=== PATIENT | female | born 1945 | race Caucasian/White ===

== ENCOUNTER 2017-10-20 15:08 | Inpatient (IN) | payer OTHER ==
[~2017-10-20] VITALS: Ht 157.5 cm; Wt 117.7 kg
[~2017-10-20 15:08] MED LIST: ADVAIR 100-501 EACH IH; AMBIEN5 MG PO; FENTANYL1 EACH TD; FLEXERIL10 MG PO; LASIX40 MG PO; METRONIDAZOLE500 MG PO; PERCOCET 10-321 EACH PO; PERCOCET 5-3251 EACH PO; XANAX0.5 MG PO
[2017-10-20 16:00] LABS: HEMATOCRIT 37.4 % (36.0-46.0); MCH 28.8 PG (29.0-34.0); MCHC 30.2 G/DL (30.0-36.0); MCV 95.4 FL (83-99); MEAN PLAT.VOLUME 10.2 uM^3 (9.5-12.4); PLATELET COUNT 291 K/uL (156-360); RBC DIS.WIDTH-CV 14.8 % (11.8-14.6); RBC DIS.WIDTH-SD 51.8 % (39-53); RED BLOOD COUNT 3.92 M/uL (3.80-5.20); WHITE BLOOD COUNT 10.2 K/uL (4.1-10.2)
[2017-10-20 16:10] LABS: CHLORIDE 103 mEq/L (99-109); POTASSIUM 3.7 mEq/L (3.7-5.4); SODIUM 143 mEq/L (136-147)
[2017-10-20 16:12] LABS: GLUCOSE 119 mg/dL (70-99)
[2017-10-20 16:13] LABS: ANION GAP 13 MEQ/L (2-14)
[2017-10-20 16:16] LABS: GFR ESTIMATE (CALCULATED) 39 mL/min/
[2017-10-20 16:17] LABS: UREA NITROGEN (BUN) 21 mg/dL (9-23)
[2017-10-20 18:04] VITALS: BP 132/62
[2017-10-20 18:10] LABS: TROP-I INTERPRETATION NEGATIVE; TROPONIN-I < 0.01 ng/mL (0.0-0.30)
[2017-10-20 19:31] VITALS: BP 107/54
[2017-10-20 23:58] VITALS: BP 136/67
[2017-10-21 04:07] VITALS: BP 159/72
[2017-10-21 06:30] LABS: HEMATOCRIT 37.3 % (36.0-46.0); MCH 28.1 PG (29.0-34.0); MCHC 29.5 G/DL (30.0-36.0); MCV 95.4 FL (83-99); MEAN PLAT.VOLUME 10.2 uM^3 (9.5-12.4); PLATELET COUNT 320 K/uL (156-360); RBC DIS.WIDTH-CV 14.7 % (11.8-14.6); RBC DIS.WIDTH-SD 52.1 % (39-53); RED BLOOD COUNT 3.91 M/uL (3.80-5.20); WHITE BLOOD COUNT 9.3 K/uL (4.1-10.2)
[2017-10-21 06:55] LABS: ALKALINE PHOSPHATASE 130 IU/L (3-129); ANION GAP 7 MEQ/L (2-14); CHLORIDE 101 MEQ/L (99-109); GFR ESTIMATE (CALCULATED) 36 mL/min/; GLUCOSE 173 mg/dL (70-99); POTASSIUM 4.1 MEQ/L (3.7-5.4); SAMPLE HEMOLYSIS CHECK 0; SAMPLE ICTERIC CHECK 0; SAMPLE LIPEMIA CHECK 0; SODIUM 143 MEQ/L (136-147); TOTAL BILIRUBIN 0.3 MG/DL (0.0-1.0); UREA NITROGEN (BUN) 26 mg/dL (9-23)
[2017-10-21 08:00] VITALS: BP 129/69
[2017-10-21] MEDS ORDERED: TYLENOL EXTRA500 MG PO (09:50)
[2017-10-21] MEDS ORDERED: ZOLOFT100 MG PO (09:51)
[2017-10-21] MEDS ORDERED: ROXICODONE5 MG PO (09:52)
[2017-10-21] MEDS ORDERED: PROVENTIL,2.5 MG/3 M IH (09:53)
[2017-10-21] MEDS ORDERED: VENTOLIN HFA18 GM IH (09:53)
[2017-10-21] MEDS ORDERED: CLARITIN,ALAVAR10 MG PO (09:54)
[2017-10-21] MEDS ORDERED: ADVAIR 250/501 DISK IH (09:54)
[2017-10-21] MEDS ORDERED: LEVOTHYROXINE75 MCG PO (09:54)
[2017-10-21 12:00] VITALS: BP 146/71
[2017-10-21 14:44] LABS: ADD MIUA? YES; BILIRUBIN NEGATIVE; BLOOD NEGATIVE; COLOR YELLOW ((YELLOW)); GLUCOSE (STRIP) NEGATIVE; KETONES NEGATIVE; LEUKOCYTES TRACE; NITRITE NEGATIVE; PROTEIN (STRIP) 30; SPECIFIC GRAVITY 1.018 (1.000-1.030); UROBILINOGEN 0.2 MG/DL (0.2-1.0)
[2017-10-21 15:02] LABS: BACTERIA RARE /HPF; EPITHELIAL CELLS 1+ /HPF; GRANULAR CASTS 0-5 /LPF; MUCUS TRACE /LPF; RED BLOOD CELLS 0-5 /HPF (0-5); UCUL ADDED? NO; WHITE BLOOD CELLS 0-5 /HPF (0-5)
[2017-10-21 15:45] VITALS: BP 139/64
[2017-10-21 20:00] VITALS: BP 131/67
[2017-10-21 23:26] VITALS: BP 150/72
[2017-10-22 03:25] VITALS: BP 147/72
[2017-10-22 06:52] LABS: MCH 28.2 PG (29.0-34.0); MCHC 29.7 G/DL (30.0-36.0); MEAN PLAT.VOLUME 10.1 uM^3 (9.5-12.4); PLATELET COUNT 335 K/uL (156-360); RBC DIS.WIDTH-CV 14.6 % (11.8-14.6); RBC DIS.WIDTH-SD 51.1 % (39-53); RED BLOOD COUNT 3.79 M/uL (3.80-5.20); WHITE BLOOD COUNT 10.3 K/uL (4.1-10.2)
[2017-10-22 07:19] LABS: ANION GAP 9 MEQ/L (2-14); CHLORIDE 101 MEQ/L (99-109); GFR ESTIMATE (CALCULATED) 39 mL/min/; GLUCOSE 156 mg/dL (70-99); SAMPLE HEMOLYSIS CHECK 0; SAMPLE ICTERIC CHECK 0; SAMPLE LIPEMIA CHECK 0; SODIUM 141 MEQ/L (136-147); UREA NITROGEN (BUN) 39 mg/dL (9-23)
[2017-10-22 08:14] VITALS: BP 152/64
[2017-10-22 12:34] VITALS: BP 149/65
[2017-10-22 15:30] VITALS: BP 145/69
[2017-10-23 01:18] VITALS: BP 121/63
[2017-10-23 07:08] VITALS: BP 113/59
[2017-10-23] MEDS ORDERED: SPIRIVA RESPIMAT4 GM IH (10:05)
[2017-10-23] MEDS ORDERED: CEFDINIR300 MG PO (10:05)
[2017-10-23] MEDS ORDERED: MUCINEX600 MG PO (10:05)
[2017-10-23] MEDS ORDERED: PREDNISONE20 MG PO (10:05)
== END 2017-10-23 14:45 | disposition home health service (06) | DRG 189 ==
LOC: EME 15:08 → EDOF 16:38 → 5SOUTH 16:38 → ENRESERV 16:40 → 5SOUTH 17:53 → ENPENDDIS 10-23 → 5SOUTH 10-23 14:45
PROVIDERS: Emergency Medicine; Hospitalist; Internal Medicine
DX: J96.21 Acute and chronic respiratory failure with hypoxia (principal); J18.9 Pneumonia, unspecified organism; J44.0 Chronic obstructive pulmonary disease with (acute) lower respiratory infection; J44.1 Chronic obstructive pulmonary disease with (acute) exacerbation; Z68.42 Body mass index [BMI] 45.0-49.9, adult; E03.9 Hypothyroidism, unspecified; G89.29 Other chronic pain; I25.10 Atherosclerotic heart disease of native coronary artery without angina pectoris; N18.3 Chronic kidney disease, stage 3 (moderate); I25.5 Ischemic cardiomyopathy; E66.01 Morbid (severe) obesity due to excess calories; M54.9 Dorsalgia, unspecified; F32.9 Major depressive disorder, single episode, unspecified; I50.9 Heart failure, unspecified; Z99.81 Dependence on supplemental oxygen; Z90.710 Acquired absence of both cervix and uterus; Z90.49 Acquired absence of other specified parts of digestive tract; Z87.891 Personal history of nicotine dependence; Z96.649 Presence of unspecified artificial hip joint; Z82.5 Family history of asthma and other chronic lower respiratory diseases
CPT/HCPCS: 71020; 80048; 80053; 81003; 83605; 83880; 84484; 85027; 87040; 87449; 87502; 93005; 94640; 94640 76; 94760; 94799; 99202; 99281; 99285; J0456; J0696; J1650; J1940; J2930; J7050; J7512

== ENCOUNTER 2018-03-14 10:54 | Observation (INO) | payer OTHER ==
[~2018-03-14] VITALS: Ht 157.5 cm; Wt 109.0 kg
[~2018-03-14 10:54] MED LIST changes: +ADVAIR 250/501 DISK IH; +CEFDINIR300 MG PO; +CLARITIN,ALAVAR10 MG PO; +LEVOTHYROXINE75 MCG PO; +MUCINEX600 MG PO; +PREDNISONE20 MG PO; +PROVENTIL,2.5 MG/3 M IH; +ROXICODONE5 MG PO; +SPIRIVA RESPIMAT4 GM IH; +TYLENOL EXTRA500 MG PO; +VENTOLIN HFA18 GM IH; +ZOLOFT100 MG PO
[2018-03-14 13:09] LABS: HEMATOCRIT 37.5 % (36.0-46.0); HEMOGLOBIN 11.9 G/DL (11.9-15.5); MCH 30.4 PG (29.0-34.0); MCHC 31.7 G/DL (30.0-36.0); MCV 95.7 FL (83-99); PLATELET COUNT 181 K/uL (156-360); RBC DIS.WIDTH-CV 14.4 % (11.8-14.6); RBC DIS.WIDTH-SD 50.4 % (39-53); RED BLOOD COUNT 3.92 M/uL (3.80-5.20); WHITE BLOOD COUNT 5.6 K/uL (4.1-10.2)
[2018-03-14 13:20] LABS: ALBUMIN 4.1 g/dL (3.2-4.8); CHLORIDE 107 mEq/L (99-109); POTASSIUM 4.9 mEq/L (3.7-5.4); SODIUM 144 mEq/L (136-147)
[2018-03-14 13:23] LABS: GLUCOSE 101 mg/dL (70-99); TOTAL PROTEIN 7.1 g/dL (6.4-8.3)
[2018-03-14 13:25] LABS: TOTAL BILIRUBIN 0.4 mg/dL (0.0-1.0)
[2018-03-14 13:26] LABS: ALKALINE PHOSPHATASE 93 IU/L (3-129); CREATININE 1.3 mg/dL (0.6-1.3); GFR ESTIMATE (CALCULATED) 42 mL/min/
[2018-03-14 13:27] LABS: UREA NITROGEN (BUN) 21 mg/dL (9-23)
[2018-03-14 13:28] LABS: AST (GOT) 17 IU/L (2-34)
[2018-03-14 13:29] LABS: ALT (GPT) 12 IU/L (3-49)
[2018-03-14 13:35] LABS: TROP-I INTERPRETATION NEGATIVE; TROPONIN-I < 0.01 ng/mL (0.0-0.30)
[2018-03-14] MEDS ORDERED: SPIRIVA RESPIMAT4 GM IH (16:13)
[2018-03-14 16:23] VITALS: BP 141/77
[2018-03-14 20:00] VITALS: BP 137/71
[2018-03-14 23:07] VITALS: BP 166/77
[2018-03-15 03:40] VITALS: BP 142/80
[2018-03-15 05:32] LABS: HEMATOCRIT 37.1 % (36.0-46.0); HEMOGLOBIN 11.3 G/DL (11.9-15.5); MCH 29.1 PG (29.0-34.0); MCHC 30.5 G/DL (30.0-36.0); MCV 95.6 FL (83-99); PLATELET COUNT 179 K/uL (156-360); RBC DIS.WIDTH-CV 14.6 % (11.8-14.6); RBC DIS.WIDTH-SD 50.6 % (39-53); RED BLOOD COUNT 3.88 M/uL (3.80-5.20); WHITE BLOOD COUNT 4.1 K/uL (4.1-10.2)
[2018-03-15 05:58] LABS: CHLORIDE 104 MEQ/L (99-109); CREATININE 1.4 MG/DL (0.6-1.3); GFR ESTIMATE (CALCULATED) 39 mL/min/; POTASSIUM 4.4 MEQ/L (3.7-5.4); SODIUM 141 MEQ/L (136-147); UREA NITROGEN (BUN) 23 mg/dL (9-23)
[2018-03-15 06:01] LABS: GLUCOSE 204 mg/dL (70-99)
[2018-03-15 07:43] VITALS: BP 171/61
[2018-03-15 11:52] VITALS: BP 138/68
[2018-03-15] MEDS ORDERED: BENZONATATE100 MG PO (14:10)
[2018-03-15] MEDS ORDERED: AZITHROMYCIN500 M1 PO (14:10)
[2018-03-15] MEDS ORDERED: PREDNISONE20 MG PO (14:13)
== END 2018-03-15 15:50 | disposition home or self-care (01) ==
LOC: EME 10:54 → EDOF 14:36 → 4SOUTH 14:36 → ENRESERV 14:45 → 4SOUTH 16:07 → ENPENDDIS 03-15 14:53 → 4SOUTH 03-15 15:50
PROVIDERS: Physician Assistant
DX: J44.1 Chronic obstructive pulmonary disease with (acute) exacerbation (principal); J44.0 Chronic obstructive pulmonary disease with (acute) lower respiratory infection; J20.9 Acute bronchitis, unspecified; R09.02 Hypoxemia; F32.9 Major depressive disorder, single episode, unspecified; G89.29 Other chronic pain; M54.9 Dorsalgia, unspecified; Z99.81 Dependence on supplemental oxygen; E66.01 Morbid (severe) obesity due to excess calories; Z68.41 Body mass index [BMI] 40.0-44.9, adult; E03.9 Hypothyroidism, unspecified; Z87.891 Personal history of nicotine dependence; Z96.641 Presence of right artificial hip joint; Z90.710 Acquired absence of both cervix and uterus; Z82.5 Family history of asthma and other chronic lower respiratory diseases; Z88.8 Allergy status to other drugs, medicaments and biological substances
CPT/HCPCS: 71046; 80048; 80053; 84484; 85027; 87040; 93005; 94640; 94640 76; 94644; 94799; 99202; 99281; 99285; G0378; J1644; J2920; J2930

== ENCOUNTER 2018-05-08 08:34 | Inpatient (IN) | payer OTHER ==
[~2018-05-08] VITALS: Ht 157.5 cm; Wt 115.0 kg
[~2018-05-08 08:34] MED LIST changes: +AZITHROMYCIN500 M1 PO; +BENZONATATE100 MG PO
[2018-05-08 09:18] LABS: BASOPHIL (%) 0.7 % (0-1); EOSINOPHIL (%) 12.3 % (0-5); EOSINOPHIL COUNT 0.7 K/uL (0-0.3); HEMATOCRIT 35.3 % (36.0-46.0); HEMOGLOBIN 11.2 G/DL (11.9-15.5); IMMATURE GRANULOCYTE (%) 0.2 % (0.0-0.7); LYMPHOCYTE (%) 23.3 % (15-42); LYMPHOCYTE COUNT 1.3 K/uL (1.0-2.8); MCH 29.9 PG (29.0-34.0); MCHC 31.7 G/DL (30.0-36.0); MCV 94.4 FL (83-99); MONOCYTE (%) 8.2 % (3-12); MONOCYTE COUNT 0.5 K/uL (0-0.8); NEUTROPHIL (%) 55.3 % (45-76); PLATELET COUNT 218 K/uL (156-360); RBC DIS.WIDTH-CV 14.6 % (11.8-14.6); RBC DIS.WIDTH-SD 50.8 % (39-53); RED BLOOD COUNT 3.74 M/uL (3.80-5.20); WHITE BLOOD COUNT 5.5 K/uL (4.1-10.2)
[2018-05-08 09:29] LABS: CHLORIDE 104 mEq/L (99-109); POTASSIUM 4.6 mEq/L (3.7-5.4); SODIUM 144 mEq/L (136-147)
[2018-05-08 09:31] LABS: GLUCOSE 119 mg/dL (70-99)
[2018-05-08 09:35] LABS: CREATININE 1.3 mg/dL (0.6-1.3); GFR ESTIMATE (CALCULATED) 42 mL/min/
[2018-05-08 09:36] LABS: UREA NITROGEN (BUN) 27 mg/dL (9-23)
[2018-05-08 09:39] LABS: TROP-I INTERPRETATION NEGATIVE; TROPONIN-I 0.01 ng/mL (0.0-0.30)
[2018-05-08] MEDS ORDERED: VITAMIN D31000 UNI2 PO (10:41)
[2018-05-08] MEDS ORDERED: ALLERGY EYE DRO10 ML BOTH EYES (10:42)
[2018-05-08 11:58] LABS: COMMENTS - BLOOD GASES C+A+; DEVICE NC; SITE RR
[2018-05-08 11:59] LABS: BASE EXCESS 6.4 mEq/L (-3 to +3); BICARBONATE 32.7 mEq/L (22-26); METHEMOGLOBIN 0.7 % (0-1.5); O2 FLOW 2 L/MIN; PCO2 54 mm Hg (35-45); PO2 86 mm Hg (80-100); pH 7.39 (7.35-7.45)
[2018-05-08 12:58] VITALS: BP 114/76; BP 158/76
[2018-05-08 15:31] VITALS: BP 135/69
[2018-05-08 20:16] VITALS: BP 145/68
[2018-05-09 00:09] VITALS: BP 146/74
[2018-05-09 04:21] VITALS: BP 160/68
[2018-05-09 05:26] LABS: HEMATOCRIT 34.6 % (36.0-46.0); HEMOGLOBIN 10.8 G/DL (11.9-15.5); MCH 29.2 PG (29.0-34.0); MCHC 31.2 G/DL (30.0-36.0); MCV 93.5 FL (83-99); PLATELET COUNT 220 K/uL (156-360); RBC DIS.WIDTH-CV 14.5 % (11.8-14.6); RBC DIS.WIDTH-SD 49.1 % (39-53); WHITE BLOOD COUNT 4.7 K/uL (4.1-10.2)
[2018-05-09 07:58] VITALS: BP 180/75
[2018-05-09 11:45] VITALS: BP 133/61
[2018-05-09 16:01] VITALS: BP 114/55
[2018-05-09 19:40] VITALS: BP 121/77
[2018-05-10 00:22] VITALS: BP 163/77
[2018-05-10 04:02] VITALS: BP 133/65
[2018-05-10 12:34] VITALS: BP 115/56
[2018-05-10 17:47] VITALS: BP 116/61
[2018-05-10 20:05] VITALS: BP 136/60
[2018-05-11 00:39] VITALS: BP 135/93
[2018-05-11 04:55] VITALS: BP 142/65
[2018-05-11 07:45] VITALS: BP 129/59
[2018-05-11] MEDS ORDERED: MUCINEX600 MG PO (13:01)
[2018-05-11] MEDS ORDERED: AMLODIPINE BESYL5 MG PO (13:02)
[2018-05-11] MEDS ORDERED: PREDNISONE5 MG PO (13:03)
[2018-05-11] MEDS ORDERED: LEVOFLOXACIN750 MG PO (13:05)
[2018-05-11] MEDS ORDERED: DULERA 200 MCG/13 GM IH (13:05)
[2018-05-11 13:38] VITALS: BP 150/72
== END 2018-05-11 14:57 | disposition home health service (06) | DRG 191 ==
LOC: EME 08:34 → EDOF 11:22 → ENRESERV 11:34 → 4SOUTH 12:47
PROVIDERS: Emergency Medicine; Internal Medicine
DX: J44.1 Chronic obstructive pulmonary disease with (acute) exacerbation (principal); J96.11 Chronic respiratory failure with hypoxia; Z99.81 Dependence on supplemental oxygen; J98.11 Atelectasis; I11.0 Hypertensive heart disease with heart failure; I50.9 Heart failure, unspecified; G89.29 Other chronic pain; M54.9 Dorsalgia, unspecified; E03.9 Hypothyroidism, unspecified; E66.01 Morbid (severe) obesity due to excess calories; Z68.42 Body mass index [BMI] 45.0-49.9, adult; F32.9 Major depressive disorder, single episode, unspecified; F41.9 Anxiety disorder, unspecified; Z87.891 Personal history of nicotine dependence; Z96.641 Presence of right artificial hip joint
CPT/HCPCS: 36600; 71045; 71046; 80048; 82803; 84145 90; 84484; 85025; 85027; 94640; 94640 76; 94760; 94799; 99202; 99281; 99285; G0378; J1650; J2930; J7512